=== PATIENT | female | born 1960 | race Caucasian/White ===

== ENCOUNTER 2017-05-15 14:02 | Emergency (ER) | payer OTHER, MEDICAID ==
[2017-05-15 14:13] VITALS: TEMP 98.4
[2017-05-15] MEDS ORDERED: IPRATROPIUM/ALBUTEROL 3 ML DEYVIAL IH ONE ×2 (15:00→15:24)
[2017-05-15 15:03] VITALS: RESP 16
[2017-05-15] MEDS ORDERED: predniSONE 20 MG TAB PO ONE (15:24)
--- NOTE | 2017-05-15 16:07 | EDPHY ---
H & P Stated Complaint: resp cough/congestion wheezing/sob Time Seen by Provider: 05/15/17 14:23 HPI/ROS: CHIEF COMPLAINT: cough HISTORY OF PRESENT ILLNESS: 56-year-old female presents to the emergency department complaining of cough and shortness of breath that started 2 days ago. Patient reports mild nasal congestion. She denies fevers or chills, no sore throat, ear pain. No abdominal pain. Patient denies urinary symptoms. She does smoke cigarettes, no history of COPD or asthma. Patient does have history of allergies and takes Claritin every day. Patient reports she has wheezing. This weekend she was camping and around a campfire, symptoms worsened on return home. REVIEW OF SYSTEMS: A comprehensive 10 point review of systems is otherwise negative aside from elements mentioned in the history of present illness. Source: Patient Exam Limitations: No limitations - Personal History LMP (Females 10-55): Post Menopausal Current Tetanus/Diphtheria Vaccine: Unsure - Medical/Surgical History Hx Asthma: No Hx Chronic Respiratory Disease: No Hx Diabetes: No Hx Cardiac Disease: No Hx Renal Disease: No Hx Cirrhosis: No Hx Alcoholism: No Hx HIV/AIDS: No Hx Splenectomy or Spleen Trauma: No Other PMH: melanoma - Social History Smoking Status: Current every day smoker - Physical Exam Exam: HePhysical Exam Gen: Alert and Oriented, NAD HEENT: PERRL, moist mucous membranes, bilateral nasal turbinates with erythema, posterior pharynx with no exudate, uvula midline, mild erythema NECK: no meningismus CV: regular rate and regular rhythm PULM: Inspiratory and expiratory wheezing throughout ABDOMEN: soft, non tender to palpation, BS present BACK: No CVA tenderness NEURO: Neurologically grossly intact EXTREMITIES: normal appearing SKIN: no rash or break in skin on exposed skin PSYCH: answers questions appropriately. Constitutional: Initial Vital Signs Temperature (C) 36.9 C 05/15/17 14:10 Heart Rate 90 05/15/17 14:10 Respiratory Rate 27 H 05/15/17 14:10 Blood Pressure 115/87 H 05/15/17 14:10 O2 Sat (%) 95 05/15/17 14:10 O2 Delivery Mode Room Air Allergies/Adverse Reactions: latex [Latex] Allergy (Verified 05/15/17 14:10) morphine Allergy (Verified 05/15/17 14:10) Sulfa (Sulfonamide Antibiotics) Allergy (Verified 05/15/17 14:10) Home Medications: Medication Instructions Recorded AZITHROMYCIN [Z-PACK] 250 mg PO DAILY #6 tab 05/15/17 Albuterol Sulfate [Proair Hfa] 8.5 gm IH Q4HRS* PRN #1 hfa.[email or web address] 05/15/17 predniSONE 60 mg PO DAILY #15 tab 05/15/17 Medical Decision Making - Diagnostics Imaging Results: Imaging Impressions Chest X-Ray 05/15/17 14:24 Impression: Mild bronchitis. No pneumonia. Imaging: I viewed and interpreted images myself ED Course/Re-evaluation: Patient is given 2 duo nebs and 60 mg of oral prednisone in the emergency department. Chest x-ray shows no evidence of pneumonia though shows a bronchitis. Wheezing is significantly improved after the 2nd DuoNeb with oxygen saturations staying above 90%. The patient will be treated with a course of Zithromax as she is a smoker. She is discharged with a 5 day course of prednisone and an albuterol inhaler. Patient will follow up with her primary care doctor this week for re-evaluation, she is given return precautions for worsening symptoms, new symptoms or concerns. Differential Diagnosis: Diagnosis considered but not limited to COPD exacerbation, pneumonia, bronchitis , asthma, allergies - Data Points Medications Given: Discontinued Medications Albuterol/Ipratropium (Duoneb) 3 ml IH EDNOW ONE Stop: 05/15/17 15:01 Last Admin: 05/15/17 15:02 Dose: 3 ml Albuterol/Ipratropium (Duoneb) 3 ml IH EDNOW ONE Stop: 05/15/17 15:25 Last Admin: 05/15/17 15:31 Dose: 3 ml Prednisone (Prednisone) 60 mg PO EDNOW ONE Stop: 05/15/17 15:25 Last Admin: 05/15/17 15:31 Dose: 60 mg Departure - Departure Disposition: Home, Routine, Self-Care Clinical Impression: Acute bronchitis Qualifiers: Bronchitis organism: unspecified organism Qualified Code(s): J20.9 - Acute bronchitis, unspecified Condition: Good Instructions: Acute Bronchitis (ED), How to Use a Nebulizer (ED), Wheezing (ED) Additional Instructions: A take 60 mg of prednisone daily for 5 days, use your albuterol inhaler 2 puffs every 4-6 hours as needed for cough. Start the Zithromax today. Continue taking your Claritin daily. Follow-up with your primary care doctor at 1st available appointment. Return to the emergency department for worsening symptoms, new symptoms or concerns. Referrals: Mitzi Robles MD [[facility] [place] - As per Instructions (Primary care doctor on-call) Prescriptions: Albuterol Sulfate [Proair Hfa] 8.5 gm IH Q4HRS* PRN #1 hfa.aer.ad PRN Reason: Cough, Moderate AZITHROMYCIN [Z-PACK] 250 mg PO DAILY #6 tab predniSONE 60 mg PO DAILY #15 tab
[2017-05-15 16:29] VITALS: BP 139/80; PULSE 83; O2SAT 94
== END 2017-05-15 16:27 | disposition home or self-care (01) ==
DX: J20.9 Acute bronchitis, unspecified (principal); F17.200 Nicotine dependence, unspecified, uncomplicated; Z91.040 Latex allergy status